=== PATIENT | male | born 1990 | race Hispanic/Latino ===

== ENCOUNTER 2019-05-20 20:01 | Emergency (ER) | payer OTHER, MEDICAID ==
[2019-05-20 20:41] VITALS: BP 118/74
== END 2019-05-21 00:30 | disposition left against medical advice (07) ==
LOC: ED 20:01
DX: M54.9 Dorsalgia, unspecified (principal); Z53.21 Procedure and treatment not carried out due to patient leaving prior to being seen by health care provider